=== PATIENT | female | born 1990 | race Caucasian/White ===

== ENCOUNTER → 2017-08-06 13:51 | Outpatient (CLI) | payer MEDICAID, SELFPAY ==
[2017-08-06 16:56] LABS: Group B Strep DNA By PCR Negative (Negative); Internal Control PASS; Probe Check PASS; Specimen Processing Control PASS
== END ==
PROVIDERS: Visit Provider Obstetrics & Gynecology
DX: Z36.85 Encounter for antenatal screening for Streptococcus B (principal)
CPT/HCPCS: 87077; 87081; 87186; 87653

== ENCOUNTER 2017-08-22 08:12 | Outpatient (CLI) | payer MEDICAID, SELFPAY ==
[2017-08-22 09:19] VITALS: BMI 28.3
[2017-08-22 09:20] LABS: ROM Internal Control Test YES-OK TO RESULT pt. (Internal QC)
[2017-08-22 09:21] LABS: ROM Patient Test Negative (Negative)
[2017-08-22 10:27] LABS: Color, Urine Yellow (Yellow); Glucose, Dipstick Normal (Normal); Ketone-Dipstick Negative (Negative); Leukocyte Esterase-Dipstick 25 /ul (Negative); Nitrite-Dipstick Negative (Negative); Occult Blood-Urine 25 /ul (Negative); Protein-Dipstick Negative (Negative); Urine Bilirubin Dipstick Negative (Negative); Urine Clarity Sl. Cloudy (Clear); Urine Urobilinogen Normal (Normal)
[2017-08-22 10:29] LABS: Hematocrit 30.9 % (37-47); Hemoglobin 9.7 g/dl (12.0-15.0); Mean Corp Hgb Conc 31.4 g/gl (32-36); Mean Corpuscular Hgb 25.9 pg (27.0-32.0); Mean Corpuscular Volume 82.6 fL (81-99); Mean Platelet Vol. 11.1 fl (6.2-12.0); Platelet Count 196 K/mm3 (150-450); RBC Distribution Width CV 15.1 % (11.6-14.6); RBC Distribution Width SD 44.6 fl (35.1-43.9); Red Blood Count 3.74 M/mm3 (4.2-5.4); White Blood Count 9.7 K/mm3 (4.4-11.0)
[2017-08-22 10:30] LABS: Scan Indicated on CBC? Y/N NO
[2017-08-22 10:39] LABS: Protein, Urine (Random) 13.6 mg/dL (<11.9); Protein:Creat Ratio 128 mg/g CRE (0-200)
[2017-08-22 10:45] LABS: Bacteria 1+ /hpf (None Seen); Mucous, Urine RARE /hpf (<or=2+); Red Blood Cells-Urine 0-5 SEEN /hpf (0-5); Squamous Epithelial Cells - UA 5-10 SEEN /hpf (5-10); White Blood Cells 0-5 SEEN /hpf (0-5)
[2017-08-22 10:46] LABS: ALB/GLOB Ratio 0.7 RATIO (0.9-2.4); AST(SGOT) 15 U/L (15-37); Alanine Aminotransfer ALT/SGPT 22 U/L (13-56); Albumin, Serum 2.5 g/dL (3.2-5.0); Alkaline Phosphatase 84 U/L (45-117); Anion Gap 8 (5-15); BUN 10 mg/dL (7-18); Calcium,Total 8.3 mg/dL (8.5-10.1); Chloride 107 mmol/L (98-107); Creatinine, Serum 0.59 mg/dL (0.55-1.02); EST Glomerular Filtration Rate 130 mL/min (>60); Est Glom Filt Rate - Afr Amer 158 mL/min (>60); Estimated Creatinine Clearance 118.48 ml/min; Globulin 3.7 g/dL (2.2-4.2); Glucose 91 mg/dL (74-106); Potassium 4.2 mmol/L (3.5-5.1); Protein, Total 6.2 g/dL (6.4-8.2); Sodium Level 140 mmol/L (136-145)
--- NOTE | 2017-08-22 17:30 | OB.TRI.NOTE ---
History of Present Illness Date of Service: 08/22/17 Was patient seen by the physician?: Yes Reason For Visit: R/O LABOR Date of Service: 08/22/17 Final RAY: 09/02/17 Gestational age: 38 Weeks and 3 Days History of Present Illness: 27 yo female at 38+ wk presents with cramping in lower abdomen, back pain, and some bloody dischg. vaginal pain also. ? SROM. Also RUQ pain which she initially stated was not due to movement. Allergies erythromycin base Allergy (Verified 05/17/17 14:48) Hives Penicillins Allergy (Verified 05/17/17 14:48) Hives Physical Exam Cervix Dilation (cm): 2 Station: 0 Effacement (%): 80 - ROM NEGATIVE NST - FHR Rate Baby A Baseline: 120-130 with avg variability Accels to 150s occ variable. Variability:: Moderate Accelerations:: 15 x 15 Decelerations:: Variable NST Reactive:: Yes, Appropriate for gestational age FHR Category:: Category I Uterine Activity:: irreg , q 1-8 mins + Impression/Plan False labor at 38 wks RUQ pain: resolved , with further questioning thinks due to movement. CBC and CMP wnl. Home. RTO for appt as scheduled. Return to Labor and Delivery if increased s/sx of labor.
== END 2017-08-22 12:45 | disposition home or self-care (01) ==
LOC: WPOUT 08:30 → WP 08:30
PROVIDERS: Family Provider Physician Assistant; PCP Physician Assistant; Visit Provider Obstetrics & Gynecology
DX: O47.1 False labor at or after 37 completed weeks of gestation (principal); Z3A.38 38 weeks gestation of pregnancy
CPT/HCPCS: 36415; 59025; 59050; 80053; 81001; 82570; 84112; 84156; 85027; 99218; G0378

== ENCOUNTER 2017-09-10 00:42 | Inpatient (IN) | payer MEDICAID, SELFPAY ==
[2017-09-09 20:52] LABS: Hematocrit 29.5 % (37-47); Mean Corp Hgb Conc 30.5 g/gl (32-36); Mean Corpuscular Hgb 24.4 pg (27.0-32.0); Mean Corpuscular Volume 79.9 fL (81-99); Mean Platelet Vol. 10.7 fl (6.2-12.0); Platelet Count 179 K/mm3 (150-450); RBC Distribution Width SD 46.8 fl (35.1-43.9); Red Blood Count 3.69 M/mm3 (4.2-5.4); Scan Indicated on CBC? Y/N NO; White Blood Count 7.4 K/mm3 (4.4-11.0)
[2017-09-09 21:16] LABS: Amphetamine Urine VISTA NEGATIVE (<1000 ng/mL); Barbiturate Urine VISTA NEGATIVE (< 200 ng/mL); Benzodiazepine Urine VISTA NEGATIVE (< 200 ng/mL); Cocaine Urine VISTA NEGATIVE (< 300 ng/mL); Ecstacy Urine VISTA NEGATIVE (< 500 ng/mL); Methadone Urine VISTA NEGATIVE (< 300 ng/mL); PCP Urine VISTA NEGATIVE (< 25 ng/mL); THC Urine VISTA NEGATIVE (< 50 ng/mL); Vista UDS pH Range 6
[2017-09-09] MEDS: Lactated Ringers 500 ML 999 ML IV (23:54)
[2017-09-10] MEDS: Lactated Ringers 1,000 ML 50 ML IV ×2 (02:54→08:00)
--- NOTE | 2017-09-10 02:59 | PCM.PN.BLA ---
Progress Note LABOR PROGRESS NOTE c/o urge to defecate AVSS GEN - NAD, AAO x 3 FHR 125, moderate variability, + accelerations, no decelerations TOCO 3-4/10 min SVE 4.5-5/80/-1 A/P: 27yo G1 @ 41 1/7wga, IOL s/p amniotomy in latent labor with Cat I FHR -Progress of descent, will continue in labor -Maternal and statuses reassuring
[2017-09-10] MEDS: Nalbuphine 10 MG/ML Ampul IV (03:43)
[2017-09-10] MEDS: Oxytocin 30 units/NS 500 ml 30 UNITS/500 ML IV.SOLN IV (04:34)
[2017-09-10] MEDS: 0.9% Saline Lock 10 ML Syringe IV (05:30)
[2017-09-10] MEDS: Ondansetron 4 MG/2 ML Vial IV (06:24)
[2017-09-10] MEDS: Amnioinfusion- 0.9% NS 1,000 ML IV.SOLN. INTRA-UTER (08:00)
--- NOTE | 2017-09-10 08:07 | PCM.PN.BLA ---
Progress Note LABOR PROGRESS NOTE Contractions are more intense, she is considering an epidural. AVSS GEN - NAD, AAO x 3 SVE 6.5/90/-2 per RN, last exam at 0727h FHR 140, moderate variability, + variable decelerations, no accelerations TOCO 4/10 min with couplets A/P: 27yo G1 @ 41 1/7wga in active labor, Cat II FHR -Amnioinfusion for variable decelerations -Maintain pitocin as tolerated by mother and fetus -Epidural per patient request
[2017-09-10] MEDS: Oxytocin 30 units/NS 500 ml 30 UNITS/500 ML IV.SOLN 334 UNITS IV (15:39)
--- NOTE | 2017-09-10 15:48 | PCM.OB.VAG ---
Vaginal Delivery Maternal Presentation: Active Labor Amniotic Membrane Rupture Type: Spontaneous Amniotic Fluid Description: Clear Final RAY: 09/02/17 Final RAY Source: US <20 weeks Gestational age: 41 Weeks and 1 Days Date of Procedure: 09/10/17 Pre-Operative Diagnosis: IUP, Postdatism Post-Operative Diagnosis: IUP, Postdatism Surgery/ Procedure Performed: Spontaneous Vaginal Delivery, Vacuum Assisted Vaginal Delivery Type of Anesthesia: Epidural Description of Procedure: Spontaneous vaginal delivery of a viable female with Apgars of 8/9 with a normal three-vessel placenta; no episiotomy. First-degree midline laceration repaired with 3-0 Rapide under epidural. Kiwi vacuum used ?2 gentle pulls from low outlet to expedite delivery of the head after approximately 4 hours of pushing and increasing maternal fatigue. One pop off. Sponge counts okay. Delivery physician: Ron Cook MD. Presentation: Vertex Placental Delivery Description: Spontaneous Placenta Disposition: [facility] Cord Vessel Description: 3 Vessels Cord Gases drawn per routine: ABG Cord Entanglement: None Estimated Blood Loss: 250 cc Infant A gender: Female (1 minute): 8 (5 minute): 9 Episiotomy Description: None Laceration: Midline, Perineal Extension/lac, 1st degree Medications given after delivery: IV Pitocin Complications: None
--- NOTE | 2017-09-10 15:52 | PCM.DCVAG ---
Discharge Diet: No Restrictions May resume sexual activity in: 4-6 weeks Additional Activity Instructions:: Nothing in the vagina for 4-6 weeks. You may return to work/school in 6 weeks. Call your doctor if you observe: Fever of 101 or Higher, Inability to have a bowel movement, Using more than one pad per hour, Shortness of breath Additional Instructions: If you experience any of the following, contact your healthcare provider. Bleeding that soaks a pad every hour for 2 hours Unrelieved incision or abdominal pain Swelling, redness, discharge or bleeding from your incision or episiotomy site Your incision begins to separate Problems urinating (including inability to urinate or burning while urinating). Visual changes Severe headache Flu-like symptoms Pain or redness in one of both of your breasts Pain, warmth, tenderness or swelling in your legs, especially the calf area Frequent nausea and vomiting Symptoms of depression or anxiety If you experience any of the following, call 911 or go to the nearest Emergency Room. Chest pain Problems breathing Seizure activity Partial or complete paralysis of a body part, slurred speech, weakness or drooping of the face, or a sudden inability to walk or hold your balance Allergies/Adverse Reactions: Allergies erythromycin base Allergy (Verified 05/17/17 14:48) Hives Penicillins Allergy (Verified 05/17/17 14:48) Hives Medications to take at Discharge NK [NK] 09/09/17 Please Follow Up With: Ron Cook MD - [phone] When: Call to make an appointment with your doctor in 6 weeks. Primary Care Physician: Joan Campo PA [Primary Care Provider] -
--- NOTE | 2017-09-10 15:53 | DCINST_ITS ---
Discharge Diet: No Restrictions May resume sexual activity in: 4-6 weeks Additional Activity Instructions:: Nothing in the vagina for 4-6 weeks. You may return to work/school in 6 weeks. Call your doctor if you observe: Fever of 101 or Higher, Inability to have a bowel movement, Using more than one pad per hour, Shortness of breath Additional Instructions: If you experience any of the following, contact your healthcare provider. * Bleeding that soaks a pad every hour for 2 hours * Unrelieved incision or abdominal pain * Swelling, redness, discharge or bleeding from your incision or episiotomy site * Your incision begins to separate * Problems urinating (including inability to urinate or burning while urinating) . * Visual changes * Severe headache * Flu-like symptoms * Pain or redness in one of both of your breasts * Pain, warmth, tenderness or swelling in your legs, especially the calf area * Frequent nausea and vomiting * Symptoms of depression or anxiety If you experience any of the following, call 911 or go to the nearest Emergency Room. * Chest pain * Problems breathing * Seizure activity * Partial or complete paralysis of a body part, slurred speech, weakness or drooping of the face, or a sudden inability to walk or hold your balance Allergies/Adverse Reactions: Allergies erythromycin base Allergy (Verified 05/17/17 14:48) Hives Penicillins Allergy (Verified 05/17/17 14:48) Hives Medications to take at Discharge NK [NK] 09/09/17 Please Follow Up With: Ron Cook MD - [phone] When: Call to make an appointment with your doctor in 6 weeks. Primary Care Physician: Joan Campo PA [Primary Care Provider] -
[2017-09-10] MEDS: Oxytocin 30 units/NS 500 ml 30 UNITS/500 ML IV.SOLN 167 UNITS IV (16:10)
--- NOTE | 2017-09-10 17:03 | NURSING ---
Terminal mec at delivery
[2017-09-10 17:58] VITALS: BP 114/78; PULSE 114; RESP 20; TEMP 36.4
[2017-09-10 20:00] VITALS: BP 119/72; PULSE 130; RESP 16; TEMP 37.1; O2SAT 98
[2017-09-10] MEDS: Ibuprofen 600 MG Tablet PO (21:36)
[2017-09-10 22:00] VITALS: PULSE 115
[2017-09-10 22:10] LABS: Absolute Neutrophil Count 9.5 X10^3/uL (2.0-7.7); Basophil# 0.02 X10^3/uL; Basophil% 0.2 % (0-1); Eosinophil# 0.04 X10^3/uL; Eosinophils% 0.3 % (0-5); Hematocrit 26.6 % (37-47); Hemoglobin 8.3 g/dl (12.0-15.0); Lymphocyte % 11.8 % (19-41); Mean Corp Hgb Conc 31.2 g/gl (32-36); Mean Corpuscular Hgb 24.7 pg (27.0-32.0); Mean Corpuscular Volume 79.2 fL (81-99); Mean Platelet Vol. 10.5 fl (6.2-12.0); Monocyte# 0.79 X10^3/uL; Monocyte% 6.7 % (0-10); Neutrophil # 9.51 X10^3/uL (2.7-7.7); Neutrophil % 80.4 % (47-70); Platelet Count 161 K/mm3 (150-450); RBC Distribution Width CV 16.3 % (11.6-14.6); RBC Distribution Width SD 47.2 fl (35.1-43.9); Red Blood Count 3.36 M/mm3 (4.2-5.4); White Blood Count 11.8 K/mm3 (4.4-11.0)
[2017-09-10 22:23] LABS: POSITIVE COUNT NO; POSITIVE DIFFERENTIAL NO; POSITIVE MORPHOLOGY NO
[2017-09-10 23:54] VITALS: BP 108/64; PULSE 110; RESP 16; TEMP 36.3; O2SAT 98
[2017-09-11] MEDS: oxyCODONE 5 MG Tablet PO (02:39)
[2017-09-11 04:00] VITALS: BP 113/74; PULSE 104; RESP 16; TEMP 36.3; O2SAT 97
[2017-09-11] MEDS: Ibuprofen 600 MG Tablet PO ×2 (04:29→16:09)
[2017-09-11] MEDS: 0.9% Saline Lock 10 ML Syringe IV (04:30)
[2017-09-11] MEDS: Acetaminophen 500 MG Tablet 1000 MG PO (08:38)
[2017-09-11] MEDS: Senna/Docusate Sodium 1 Tablet PO (08:38)
[2017-09-11 08:40] VITALS: BP 106/71; PULSE 84; RESP 20; TEMP 36.3; O2SAT 99
--- NOTE | 2017-09-11 09:40 | PCM.PN.OB ---
Subjective: Patient without complaints. Tolerating diet well. Catheter needed to be reinserted last evening due to difficulty voiding. Patient with known anemia from prior to delivery. Discussed taking iron at home up to 3 times daily. Baby not amenable to breast-feeding and now bottlefeeding. Denies any orthostatic symptoms. - Physical Exam Vital Signs AF, VSS Temp Pulse Resp BP Pulse Ox 97.4 F L 84 20 H 106/71 99 09/11/17 08:40 09/11/17 08:40 09/11/17 08:40 09/11/17 08:40 09/11/17 08:40 Oxygen Delivery Method Room Air Weight: 169 lb 8.568 oz Body Mass Index (BMI) 30.0 Intake and Output for Last 24 Hours 09/09/17 09/10/17 09/11/17 23:59 23:59 23:59 Intake Total 4956 / 4956 Output Total 2550 / 2550 650 / 650 Balance 2406 / 2406 -650 / -650 Laboratory Tests Past 24 Hrs 09/10/17 21:40 WBC 11.8 H RBC 3.36 L Hgb 8.3 L Hct 26.6 L MCV 79.2 L MCH 24.7 L MCHC 31.2 L RDW 16.3 H RDW Differential 47.2 H Plt Count 161 MPV 10.5 Immature Gran % (Auto) 0.600 Neut % (Auto) 80.4 H Lymph % (Auto) 11.8 L [place] % (Auto) 6.7 Eos % (Auto) 0.3 Baso % (Auto) 0.2 Absolute Neuts (auto) 9.5 H Absolute Lymphs (auto) 1.40 Total Counted Not Reportable Assessment/Plan Doing well. Will DC Agee catheter and attempt voiding trial today. We will also check CBC postdelivery so patient has baseline as she begins iron therapy at home. Anticipate release tomorrow.
[2017-09-11 10:55] LABS: Absolute Lymphocyte Count 1.51 X10^3/ul (0.83-4.51); Absolute Neutrophil Count 8.1 X10^3/uL (2.0-7.7); Basophil# 0.02 X10^3/uL; Basophil% 0.2 % (0-1); Eosinophil# 0.12 X10^3/uL; Eosinophils% 1.1 % (0-5); Hematocrit 27.9 % (37-47); Hemoglobin 8.4 g/dl (12.0-15.0); Lymphocyte # 1.51 X10^3/ul (4.0); Lymphocyte % 14.4 % (19-41); Mean Corp Hgb Conc 30.1 g/gl (32-36); Mean Corpuscular Hgb 24.1 pg (27.0-32.0); Mean Corpuscular Volume 80.2 fL (81-99); Mean Platelet Vol. 10.4 fl (6.2-12.0); Monocyte# 0.63 X10^3/uL; Neutrophil % 77.4 % (47-70); Platelet Count 170 K/mm3 (150-450); RBC Distribution Width CV 16.3 % (11.6-14.6); RBC Distribution Width SD 47.7 fl (35.1-43.9); Red Blood Count 3.48 M/mm3 (4.2-5.4); White Blood Count 10.5 K/mm3 (4.4-11.0)
[2017-09-11 10:57] LABS: POSITIVE COUNT NO; POSITIVE DIFFERENTIAL NO; POSITIVE MORPHOLOGY NO
[2017-09-11 12:30] VITALS: BP 107/69; PULSE 102; TEMP 36.5; O2SAT 97
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
[2017-09-11 16:10] VITALS: BP 106/65; PULSE 103; TEMP 36.4; O2SAT 98
[2017-09-11 20:00] VITALS: BP 123/78; PULSE 118; RESP 17; TEMP 36.2; O2SAT 98
[2017-09-12 01:40] VITALS: BP 116/69; PULSE 84; RESP 17; TEMP 36.5; O2SAT 98
--- NOTE | 2017-09-12 08:32 | RAD_ITS ---
STUDY: X-RAY CHEST REASON FOR EXAM: Female, 27 years old. Productive cough. TECHNIQUE: PA and lateral views of the chest. COMPARISON: None. FINDINGS: The lungs are clear and expanded. There is no demonstrated pleural abnormality. Normal size heart. Normal mediastinum and [place]. Normal visualized pulmonary arteries. Normal visualized aortic arch and descending thoracic aorta. Normal visualized thoracic spine. Normal visualized ribs, clavicles, and shoulders. There is no demonstrated abnormality of the visualized soft tissue structures of the upper abdomen. RAD/Chest PA and Lateral IMPRESSION: Normal x-ray examination of the chest. Electronically Signed: Khadar Lagos MD at 10:03 EDT Tel [phone], Service support ,
--- NOTE | 2017-09-12 08:33 | PCM.PN.OB ---
Subjective: Relates she has felt warm, but uncertain if fever. Cough persists, now productive. Denies diarrhea, chills, sore throat. Previously had Influenza A this flue season. Denies heavy lochia. Otherwise, doing well. Objective: AVSS - Physical Exam General: Alert, Oriented x3, Cooperative, No apparent distress HEENT: Atraumatic, Normocephalic Lungs: Rhonchi Cardiovascular: Regular rate, Regular Rhythm, Normal S1, Normal S2 Abdomen: Soft, Non Tender, Non-Distended, - - Fundus firm and nontender Extremities: No edema, No Calf Tenderness Neurological: Neuro grossly intact Psych/Mental Status: Normal Affect, Appropriate, Alert and oriented to time, place, person, mood and affect Vital Signs Temp Pulse Resp BP Pulse Ox 97.7 F L 84 17 116/69 98 09/12/17 01:40 09/12/17 01:40 09/12/17 01:40 09/12/17 01:40 09/12/17 01:40 Oxygen Delivery Method Room Air Weight: 76.9 kg Body Mass Index (BMI) 30.0 Intake and Output for Last 24 Hours 09/10/17 09/11/17 09/12/17 23:59 23:59 23:59 Intake Total 4956 / 4956 Output Total 2550 / 2550 1300 / 1300 Balance 2406 / 2406 -1300 / -1300 Laboratory Tests Past 24 Hrs 09/11/17 10:40 WBC 10.5 RBC 3.48 L Hgb 8.4 L Hct 27.9 L MCV 80.2 L MCH 24.1 L MCHC 30.1 L RDW 16.3 H RDW Differential 47.7 H Plt Count 170 MPV 10.4 Immature Gran % (Auto) 0.900 Neut % (Auto) 77.4 H Lymph % (Auto) 14.4 L [place] % (Auto) 6.0 Eos % (Auto) 1.1 Baso % (Auto) 0.2 Absolute Neuts (auto) 8.1 H Absolute Lymphs (auto) 1.51 Total Counted Not Reportable Assessment/Plan 27yo PPD#2 s/p with worsening cough. -Likely bronchitis, CXR to r/o PNA -Will plan for d/c later today.
[2017-09-12 08:36] VITALS: BP 120/88; PULSE 110; RESP 18; TEMP 36.8; O2SAT 97
[2017-09-12] MEDS: Ibuprofen 600 MG Tablet PO (08:37)
[2017-09-12 08:40] VITALS: PULSE 110
--- NOTE | 2017-09-12 12:29 | PCM.DCVAG ---
Discharge Diet: No Restrictions Discharge Activity: Return to Normal Activity, May Shower, May Take a Tub Bath May resume sexual activity in: 4-6 weeks Lifting Restrictions: 20 lb Additional Activity Instructions:: Nothing in the vagina for 4-6 weeks. You may return to work/school in 6 weeks. Call your doctor if you observe: Fever of 101 or Higher, Inability to have a bowel movement, Using more than one pad per hour, Shortness of breath Instructions: Acute Bronchitis Additional Instructions: If you experience any of the following, contact your healthcare provider. Bleeding that soaks a pad every hour for 2 hours Fever 100.4 or higher Unrelieved incision or abdominal pain Swelling, redness, discharge or bleeding from your incision or episiotomy site Your incision begins to separate Problems urinating (including inability to urinate or burning while urinating). Visual changes Severe headache Flu-like symptoms Pain or redness in one of both of your breasts Pain, warmth, tenderness or swelling in your legs, especially the calf area Frequent nausea and vomiting Symptoms of depression or anxiety If you experience any of the following, call 911 or go to the nearest Emergency Room. Chest pain Problems breathing Seizure activity Partial or complete paralysis of a body part, slurred speech, weakness or drooping of the face, or a sudden inability to walk or hold your balance Allergies/Adverse Reactions: Allergies erythromycin base Allergy (Verified 05/17/17 14:48) Hives Penicillins Allergy (Verified 05/17/17 14:48) Hives Medications to take at Discharge Docusate Sodium [Colace] 100 mg PO BID PRN PRN #60 cap 09/12/17 Ibuprofen 600 mg PO TID PRN #30 tab 09/12/17 Please Follow Up With: Ron Cook MD When: 6 weeks Please Follow Up With: Joan Campo PA - Follow up if no improvement of bronchitis in 3-5 days When: 3-5 days Primary Care Physician: Joan Campo PA [Primary Care Provider] -
--- NOTE | 2017-09-12 12:39 | DCINST_ITS ---
Discharge Diet: No Restrictions Discharge Activity: Return to Normal Activity, May Shower, May Take a Tub Bath May resume sexual activity in: 4-6 weeks Lifting Restrictions: 20 lb Additional Activity Instructions:: Nothing in the vagina for 4-6 weeks. You may return to work/school in 6 weeks. Call your doctor if you observe: Fever of 101 or Higher, Inability to have a bowel movement, Using more than one pad per hour, Shortness of breath Instructions: Acute Bronchitis Additional Instructions: If you experience any of the following, contact your healthcare provider. * Bleeding that soaks a pad every hour for 2 hours * Fever 100.4 or higher * Unrelieved incision or abdominal pain * Swelling, redness, discharge or bleeding from your incision or episiotomy site * Your incision begins to separate * Problems urinating (including inability to urinate or burning while urinating) . * Visual changes * Severe headache * Flu-like symptoms * Pain or redness in one of both of your breasts * Pain, warmth, tenderness or swelling in your legs, especially the calf area * Frequent nausea and vomiting * Symptoms of depression or anxiety If you experience any of the following, call 911 or go to the nearest Emergency Room. * Chest pain * Problems breathing * Seizure activity * Partial or complete paralysis of a body part, slurred speech, weakness or drooping of the face, or a sudden inability to walk or hold your balance Allergies/Adverse Reactions: Allergies erythromycin base Allergy (Verified 05/17/17 14:48) Hives Penicillins Allergy (Verified 05/17/17 14:48) Hives Medications to take at Discharge Docusate Sodium [Colace] 100 mg PO BID PRN PRN #60 cap 09/12/17 Ibuprofen 600 mg PO TID PRN #30 tab 09/12/17 Please Follow Up With: Ron Cook MD When: 6 weeks Please Follow Up With: Joan Campo PA - Follow up if no improvement of bronchitis in 3-5 days When: 3-5 days Primary Care Physician: Joan Campo PA [Primary Care Provider] -
[2017-09-12] MEDS: oxyCODONE 5 MG Tablet PO (13:02)
--- NOTE | 2017-09-12 13:02 | PCM.DC.SUM ---
Discharge Date and Diagnosis - Problem List Patient Problems: Active and Suspected Problems Bronchitis (Acute) (spontaneous vaginal delivery) (Acute) Date of Admission: 09/10/17 Date of Discharge: 09/12/17 - Primary Discharge Diagnosis Active and Suspected Problems Bronchitis (Acute) (spontaneous vaginal delivery) (Acute) Hospital Course and Treatment Imaging Results: 09/12/17 08:32 CXR [Chest PA and Lateral] [RAD] Urgent Operations: None Procedures: None Summary of Care Provided: The patient is a 27 year old F admitted at 41 07/06 in latent labor for scheduled induction however. She was augmented and had a vacuum assisted vaginal delivery for prolonged second stage. Her clinical course was complicated by respiratory complaints. A chest XRay was negative and she was advised supportive therapies for acute bronchitis. She was discharged to home on day #2. Discharge Diet: No Restrictions Discharge Activity: Return to Normal Activity, May Shower, May Take a Tub Bath May resume sexual activity in: 4-6 weeks Additional Activity Instructions:: Nothing in the vagina for 4-6 weeks. You may return to work/school in 6 weeks. Call your doctor if you observe: Fever of 101 or Higher, Inability to have a bowel movement, Using more than one pad per hour, Shortness of breath Home Medications: Medications to take at Discharge Docusate Sodium [Colace] 100 mg PO BID PRN PRN #60 cap 09/12/17 Ibuprofen 600 mg PO TID PRN #30 tab 09/12/17 Following Prescrptions Were Given to Patient: Docusate Sodium [Colace] 100 mg PO BID PRN PRN #60 cap PRN Reason: Constipation Ibuprofen 600 mg PO TID PRN #30 tab PRN Reason: Pain Other Amb Orders: Electric breast pump Location: None Selected Primary Care Physician: Joan Campo PA [Primary Care Provider] - Please Follow Up With: Ron Cook MD Please Follow Up With: Joan Campo PA - Follow up if no improvement of bronchitis in 3-5 days When: 3-5 days Patient Instructions: Acute Bronchitis Meaningful Use Info Meaningful Use Diagnoses (Choose all that apply): None applicable
--- NOTE | 2017-09-12 13:15 | NURSING ---
Patient states PCP is Dr Acosta and is able to follow up after discharge if respiratory symptoms persist.
[2017-09-12 13:36] VITALS: BP 106/62; PULSE 101; RESP 16; TEMP 37.1; O2SAT 97
--- NOTE | 2017-09-12 15:00 | CASEMGMT ---
Social Work Note Labor and Delivery Unit Reviewed options for mental health treatment in [facility]. MOB chose to go with [facility] in [place]. Called this agency in presence of MOB. Arranged an intake appointment that MOB verbalized will work for MOBs schedule. Appointment set for 09-23-17 at 1000 with Oma. Reviewed with MOB and with infants maternal grandmother Selene safety issues at home. MOB and Selene both report to feel safe and able to identify supports in home area should ever become concerned. Both report that FOB does not know where Selene lives. foster care worker discussed having safety plans in case of future safety concerns. Provided resource lists of socially responsible investment adviser agencies, including crisis numbers if needed. Information also given on depression and online support programs if needed. No further needs requested or indicated. MOB accepted resources offered, reports agreement to go to mental health follow up, reports intent to talk to family doctor about restarting medication but at this time to feel happy. MOB reports to have supplies for baby and adequate help at home. MOB and baby home today. Will make [facility] referral. -RACHNA Major, ORTHOPEDIC PODIATRIST
--- NOTE | 2017-09-16 11:00 | CASEMGMT ---
Social Work Labor and Delivery [facility] referral made via [facility]'s secure web based referral system. -DONNA Major, SPOKE MAKER
== END 2017-09-12 18:40 | disposition home or self-care (01) | DRG 373 ==
LOC: WPOUT 00:45 → WP 00:45
PROVIDERS: Obstetrics & Gynecology; Admitting Provider Obstetrics & Gynecology; Family Provider Physician Assistant; PCP Physician Assistant; Visit Provider Obstetrics & Gynecology
DX: O63.1 Prolonged second stage (of labor) (principal); J40 Bronchitis, not specified as acute or chronic; Z37.0 Single live birth; O48.0 Post-term pregnancy; O99.52 Diseases of the respiratory system complicating childbirth; O70.0 First degree perineal laceration during delivery; Z3A.41 41 weeks gestation of pregnancy
CPT/HCPCS: 59025; 59050; 71046; 80307; 85025; 85027; 86850; 86900; 99218; J7030; J7120; A4216; G0378; J2405